=== PATIENT | female | born 1955 | race Caucasian/White ===

== ENCOUNTER 2020-08-19 15:15 | Outpatient (REF) | payer OTHER, SELFPAY | END 2020-08-19 15:16 | disposition home or self-care (01) | LOC: HO.LAB 15:15 | PROVIDERS: Visit Provider Internal Medicine | DX: Z20.828 Contact with and (suspected) exposure to other viral communicable diseases (principal) | CPT/HCPCS: C9803; U0003 ==

== ENCOUNTER 2020-09-30 15:00 | Outpatient (REF) | payer OTHER, SELFPAY | END 2020-09-30 15:01 | disposition home or self-care (01) | LOC: HO.LAB 15:00 | PROVIDERS: PCP Internal Medicine; Visit Provider Internal Medicine | DX: Z20.828 Contact with and (suspected) exposure to other viral communicable diseases (principal) | CPT/HCPCS: C9803; U0003 ==

== ENCOUNTER 2024-01-18 13:44 | Outpatient (AMB) | payer MEDICARE, SELFPAY ==
--- NOTE | 2024-01-18 12:46 | MHC.PC.OV ---
Vital Signs 01/18/24 13:48 Height 5 ft 5 in Weight 194 lb 4 oz BMI 32.3 BP 126/68 Blood Pressure Location Lt brachial Position Sitting Respiration 12 Pulse 78 Pulse Source Pulse Oximeter Pulse Oximetry (%) 98 Oxygen Delivery Method Room Air Intake Visit Reasons: Blood Pressure follow up Intake Note: Patient is here for a follow up of blood pressure and to establish care in the office. Patient also takes a probiotic and a joint and muscle vitamin. Patient reports she has a psych provide-Qi. 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 Accompanied by: Self / Same As Patient Allergies gluten [GLUTEN] Allergy (Unknown, Verified 01/18/24 13:52) CELIAC DISEASE Penicillins [PENICILLINS] Allergy (Unknown, Verified 01/18/24 13:52) HIVES Sulfa (Sulfonamide Antibiotics) [SULFA (SULFONAMIDE ANTIBIOTICS)] Allergy (Unknown, Verified 01/18/24 13:52) RASH Medication List - Last Reconciled 01/18/24 by Mel Samson MD amlodipine 2.5 mg PO DAILY calcium carbonate (Antacid (calcium carbonate)) 200 mg PO BID cetirizine (Zyrtec) 10 mg PO DAILY PRN cholecalciferol (vitamin D3) 50 mcg PO DAILY escitalopram oxalate 20 mg PO DAILY fluticasone propionate 50 mcg/actuation 1 spray intranasal BID glucosamine sulfate 500 mg PO DAILY krill oil mg PO lorazepam 1 mg PO BEDTIME PRN meloxicam 15 mg PO DAILY multivitamin 1 tab PO DAILY vitamin B complex 1 tab PO DAILY Tobacco use date assessed: 01/18/24 Fall risk assessment: No Falls in past year Last assessed Fall Risk: 01/18/24 Dental Screening Dental Screen Date: 01/18/24 Did you have a dental visit in the last 12 months?: Yes Did you have a dental problem in the last 6 months where you did not have access to dental care?: No Was dental information given to patient?: Patient has dentist HPI HPI Comments History of Present Illness Details 68 year old female with a past medical history of hypertension, OA, anxiety presenting for follow up CV: On amlodipine 2.5mg daily. Started preoperatively for elevated BPs MSK: Underwent left hip replacement in Nov 13 2023 at [facility] Medical History (Updated 01/18/24 @ 14:48 by Mel Samson MD) Hypertension Generalized anxiety disorder Surgical History (Updated 01/18/24 @ 14:22 by Kimmy Hutchinson CMA) History of hip replacement Social History Household Members: Spouse Housing: House Are you a primary physician locums urgent care to a significant other at home: No Do you presently have visiting nurse or other home services: No 75 years or older and lives alone: No Alcohol intake: current Alcohol intake frequency: holidays/special occasions only Patient Tobacco Use Status: Never used Tobacco e-Cigarette/Vaping Use: Never Used service: No Current occupational status: retired Current occupation: Likes to ski Cognitive needs: No Hearing needs: No Vision needs: No Questionnaire PHQ-9 Over the last 2 weeks, how often have you been bothered by any of the following problems? 1. Little interest or pleasure in doing things: not at all 2. Feeling down, depressed, or hopeless: not at all 3. Trouble falling or staying asleep, or sleeping too much: not at all 4. Feeling tired or having little energy: not at all 5. Poor appetite or overeating: not at all 6. Feeling bad about yourself - or that you are a failure or have let yourself or your family down: not at all 7. Trouble concentrating on things, such as reading the newspaper or watching television: not at all 8. Moving or speaking so slowly that other people could have noticed. Or the opposite - being so fidgety or restless that you have been moving around a lot more than usual: not at all 9. Thoughts that you would be better off or of hurting yourself in some way: not at all Total score: 0 Depression Screening Interpretation: Negative Depression Screening Done: Yes 90641 - PHQ-9 Billing: Yes Source: Developed by Drs. Davy Jones, Beatriz Pitt, Uvaldo Fairchild and colleagues, with an educational meredith from [employer]. Thrive Questionnaire Date Thrive assessed: 01/18/24 I am a: Patient What is your living situation today?: I have a steady place to live Within the past 12 months, did the food you bought not last and you didn't have the money to get more?: Never true Within the past 12 months, did you worry whether your food would run out before you got money to buy more?: Never true Do you have trouble paying for medicines?: No Do you have trouble getting transportation to medical appointments?: No Do you have trouble paying your heating and electricity bill?: No Do you have trouble taking care of your child, family member or friend?: No Do you have trouble with day-to-day activities such as bathing, preparing meals, shopping, managing finances, etc.?: No Are you currently unemployed and looking for a job?: No Are you interested in more education?: No Please select the resources that you would like help with: None Currently or been in a relationship where the following occur: no concerns reported THRIVE Score: 0 AUDIT C Alcohol Use Questionnaire (AUDIT-C) 1. How often do you have a drink containing alcohol?: Monthly or less 2. How many drinks containing alcohol do you have on a typical day when you are drinking?: 1 or 2 3. How often do you have six or more drinks on one occasion?: Never Total Score: 1 GERTRUDIS-7 AMB Questionnaire GERTRUDIS-7 Date GERTRUDIS - 7 assessed: 01/18/24 Feeling nervous, anxious, or on edge: 0 = Not at all Not being able to stop or control worryin = Not at all Worrying too much about different things: 0 = Not at all Trouble relaxin = Not at all Being so restless that it is hard to sit still: 0 = Not at all Becoming easily annoyed or irritable: 0 = Not at all Feeling afraid as if something awful might happen: 0 = Not at all Total GERTRUDIS-7 score (0-4 normal; 5-9 mild; 10-14 moderate; 15-21 severe): 0 Source: Developed by Drs. Davy Jones, Beatriz Pitt, Uvaldo Fairchlid and colleagues, with an educational meredith from [employer]. GERTRUDIS-7 Assessment Billing GERTRUDIS-7 Assessment Tool: GERTRUDIS-7 Assessment 65725 Review of Systems Const Details: ROS CONSTITUTIONAL: Denies weight loss, fever and chills. HEENT: Denies changes in vision and hearing. RESPIRATORY: Denies SOB and cough.? CV: Denies palpitations and CP GI: Denies abdominal pain, nausea, vomiting and diarrhea. : Denies dysuria and urinary frequency. MSK: Denies myalgia and joint pain. SKIN: Denies rash and pruritus. NEUROLOGICAL: Denies headache and syncope. PSYCHIATRIC: Denies recent changes in mood. Denies anxiety and depression. Physical exam (Primary Care) Vital Signs: Last Vital Signs Pulse 78 01/18/24 13:48 Resp 12 01/18/24 13:48 BP 126/68 01/18/24 13:48 Pulse Ox 98 01/18/24 13:48 Oxygen Delivery Method Room Air 01/18/24 13:48 BMI result Body Mass Index 32.3 Tobacco/Smoking Status: Tobacco use Status Tobacco use date assessed 01/18/24 01/18/24 14:06 Patient Tobacco Use Status Never used Tobacco 01/18/24 14:06 e-Cigarette/Vaping Use Never Used 01/18/24 14:06 PHQ-9: PHQ-9 Score PHQ-9: Total score 0 01/18/24 14:08 Depression Screening Interpretation: Negative Currently or been in a relationship where the following occur: no concerns reported Const Other: PHYSICAL EXAM: GENERAL: Alert and oriented x 3. No acute distress. Well-nourished. EYES: EOMI. Anicteric. HENT: Moist mucous membranes. No scleral icterus. No cervical lymphadenopathy. LUNGS: Clear to auscultation bilaterally. No accessory muscle use. CARDIOVASCULAR: Regular rate and rhythm. No murmur. No JVD. ABDOMEN: Soft, non-tender and non-distended. No palpable masses. EXTREMITIES: No edema. Non-tender.?SKIN: No rashes or lesions. Warm. NEUROLOGIC: No focal neurological deficits. CN II-XII grossly intact, but not individually tested. PSYCHIATRIC: Cooperative. Appropriate mood and affect. Assessment and Plan Assessment & Plan (1) Hypertension: Comment: controlled on current medications Code(s): I10 - Essential (primary) hypertension Qualifiers: Hypertension type: primary hypertension Qualified Code(s): I10 - Essential (primary) hypertension (2) Osteoarthritis: Comment: s/p hip replacement. switch meloxicam to celebrex as GI upset requiring PPI Code(s): M19.90 - Unspecified osteoarthritis, unspecified site Qualifiers: Osteoarthritis location: multiple joints Osteoarthritis type: primary Qualified Code(s): M15.9 - Polyosteoarthritis, unspecified (3) Generalized anxiety disorder: Comment: stable. follows with psychiatry Code(s): F41.1 - Generalized anxiety disorder Orders: Orders MM screening mammo BI Today Z12.31 - Encounter for screening mammogram for malignant neoplasm of breast Referrals Cologuard Test Z12.11 - Encounter for screening for malignant neoplasm of colon, Z12.12 - Encounter for screening for malignant neoplasm of rectum Medications: New celecoxib (Celebrex) 200 mg PO BID 90 days PRN 180 caps 3RF pain amlodipine 2.5 mg PO DAILY 90 days 90 tabs 3RF Coding Level of Care Code Est Pt Level 5 (19383) Diagnoses Primary hypertension I10 Hypertension type: primary hypertension Primary osteoarthritis involving multiple joints M15.9 Osteoarthritis location: multiple joints Osteoarthritis type: primary Generalized anxiety disorder F41.1 Additional Codes GERTRUDIS-7 Assessment Billing - GERTRUDIS-7 Assessment Tool: GERTRUDIS-7 Assessment [id number] ([id number]) Time Spent (min) 42
[2024-01-18 13:48] VITALS: BP 126/68; PULSE 78; RESP 12; O2SAT 98; BMI 32.3
== END 2024-01-18 14:32 | disposition home or self-care (01) ==
PROVIDERS: PCP Internal Medicine; Visit Provider Internal Medicine
DX: I10 Essential (primary) hypertension (principal); M15.9 Polyosteoarthritis, unspecified; F41.1 Generalized anxiety disorder
CPT/HCPCS: 96127; 99215

== ENCOUNTER 2024-07-19 14:49 | Outpatient (AMB) | payer MEDICARE, SELFPAY ==
--- NOTE | 2024-07-19 14:47 | A.OFFPC_ITS ---
Vital Signs 07/19/24 14:56 Height 5 ft 5 in Weight 195 lb 8 oz BMI 32.5 BP 124/78 Blood Pressure Location Lt brachial Position Sitting Pulse 76 Pulse Source Pulse Oximeter Pulse Oximetry (%) 99 Oxygen Delivery Method Room Air Intake Visit Reasons: 6 mth follow up bp Intake Note: Six month follow up. Rash right hand Allergies gluten [GLUTEN] Allergy (Unknown, Verified 07/19/24 14:48) CELIAC DISEASE Penicillins [PENICILLINS] Allergy (Unknown, Verified 07/19/24 14:48) HIVES Sulfa (Sulfonamide Antibiotics) [SULFA (SULFONAMIDE ANTIBIOTICS)] Allergy (Unknown, Verified 07/19/24 14:48) RASH Tobacco use date assessed: 01/18/24 Dental Screening Dental Screen Date: 01/18/24 HPI HPI Comments History of Present Illness Details 68 year old female with a past medical h istory of hypertension, osteoarthritis, anxiety presenting for follow up CV: On amlodipine 2.5mg daily. Started preoperatively for elevated BPs. Blood pressure is excellent. She may try off it a month prior to her next visit MSK: Underwent left hip replacement in Nov 13 2023 at [facility]. She completed follow up. She was experiencing some postoperative left knee pain but this seems to have completely subsided. Anxiety: On lexapro 20mg daily. Doing well. Mammo scheduled Cologuard 06/2024 ROS CONSTITUTIONAL: Denies weight loss, fever and chills. HEENT: Denies changes in vision and hearing. RESPIRATORY: Denies SOB and cough. CV: Denies palpitations and CP GI: Denies abdominal pain, nausea, vomiting and diarrhea. : Denies dysuria and urinary frequency. MSK: Denies new myalgia and joint pain. SKIN: interdigital hand eczema NEUROLOGICAL: Denies headache PSYCHIATRIC: Denies recent changes in mood. PHYSICAL EXAM: GENERAL: Alert and oriented x 3. NAD EYES: EOMI. Anicteric. HENT: Moist mucous membranes. No scleral icterus. No cervical lymphadenopathy. LUNGS: Clear to auscultation bilaterally. CARDIOVASCULAR: Regular rate and rhythm. No murmur. No JVD. ABDOMEN: Soft, non-tender +bs EXTREMITIES: No edema. Non-tender. SKIN: eczema between third and fourth right fingers NEUROLOGIC: No focal neurological deficits. CN II-XII grossly intact PSYCHIATRIC: Cooperative. Appropriate mood and affect [facility] Medical History (Updated 07/22/24 @ 06:27 by Mel Samson MD) Hypertension Generalized anxiety disorder Surgical History (Updated 01/18/24 @ 14:22 by Kimmy Hutchinson CMA) History of hip replacement Social History (Updated 01/18/24 @ 13:56 by Kimmy Hutchinson CMA) Household Members: Spouse Housing: House Are you a primary progressive care unit registered nurse to a significant other at home: No Do you presently have visiting nurse or other home services: No 75 years or older and lives alone: No Alcohol intake: current Alcohol intake frequency: holidays/special occasions only Patient Tobacco Use Status: Never used Tobacco e-Cigarette/Vaping Use: Never Used service: No Current occupational status: retired Current occupation: Likes to [employer] Cognitive needs: No Hearing needs: No Vision needs: No Questionnaire Thrive Questionnaire Date Thrive assessed: 07/16/24 GERTRUDIS-7 AMB Questionnaire GERTRUDIS-7 Date GERTRUDIS - 7 assessed: 01/18/24 Source: Developed by Drs. Davy Jones, Beatriz Pitt, Uvaldo Fairchild and colleagues, with an educational meredith from [employer]. Physical exam (Primary Care) Vital Signs: Last Vital Signs Pulse 76 07/19/24 14:56 BP 124/78 07/19/24 14:56 Pulse Ox 99 07/19/24 14:56 Oxygen Delivery Method Room Air 07/19/24 14:56 BMI result Body Mass Index 32.5 Tobacco/Smoking Status: Tobacco use Status Tobacco use date assessed 01/18/24 07/19/24 14:48 Patient Tobacco Use Status Never used Tobacco 07/19/24 14:48 e-Cigarette/Vaping Use Never Used 07/19/24 14:48 Thrive Assessment: Date of Thrive Assessment Date Thrive assessed 07/16/24 07/19/24 14:48 Coding Level of Care Code Est Pt Level 4 (46884) Diagnoses Generalized anxiety disorder F41.1 Primary hypertension I10 Hypertension type: primary hypertension Primary osteoarthritis involving multiple joints M15.9 Osteoarthritis location: multiple joints Osteoarthritis type: primary Assessment & Plan Assessment & Plan (1) Generalized anxiety disorder: Comment: stable. follows with psychiatry Code(s): F41.1 - Generalized anxiety disorder Category: Medical Plan: stable. continue current medications (2) Hypertension: Comment: controlled on current medications Code(s): I10 - Essential (primary) hypertension Category: Medical Qualifiers: Hypertension type: primary hypertension Qualified Code(s): I10 - Essential (primary) hypertension Plan: continue current medications (3) Osteoarthritis: Code(s): M19.90 - Unspecified osteoarthritis, unspecified site Category: Medical Qualifiers: Osteoarthritis location: multiple joints Osteoarthritis type: primary Qualified Code(s): M15.9 - Polyosteoarthritis, unspecified Plan: No longer having any GI upset. She has returned to [facility] Orders: Orders Complete Blood Count Auto Diff 07/19/24 F41.1 - Generalized anxiety disorder, I10 - Essential (primary) hypertension, M15.9 - Polyosteoarthritis, unspecified Vitamin D 25-OH (D2 and D3) 07/19/24 F41.1 - Generalized anxiety disorder, I10 - Essential (primary) hypertension, M15.9 - Polyosteoarthritis, unspecified Comprehensive Met. Panel 07/19/24 F41.1 - Generalized anxiety disorder, I10 - Essential (primary) hypertension, M15.9 - Polyosteoarthritis, unspecified Lipid Panel 07/19/24 F41.1 - Generalized anxiety disorder, I10 - Essential (primary) hypertension, M15.9 - Polyosteoarthritis, unspecified TSH reflex Free T4 07/19/24 F41.1 - Generalized anxiety disorder, I10 - Essential (primary) hypertension, M15.9 - Polyosteoarthritis, unspecified Medications: New clobetasol 0.05% 1 appl topical BID 60 grams 3RF 2 weeks meloxicam 15 mg PO DAILY 90 tabs 3RF
[2024-07-19 14:56] VITALS: BP 124/78; PULSE 76; O2SAT 99; BMI 32.5
== END 2024-07-19 15:34 | disposition home or self-care (01) ==
PROVIDERS: PCP Internal Medicine; Visit Provider Internal Medicine
DX: F41.1 Generalized anxiety disorder (principal); I10 Essential (primary) hypertension; M15.9 Polyosteoarthritis, unspecified

== ENCOUNTER → 2024-07-19 14:49 | Outpatient (BNVA) | payer MEDICARE, SELFPAY | PROVIDERS: PCP Internal Medicine; Visit Provider Internal Medicine | DX: F41.1 Generalized anxiety disorder (principal); I10 Essential (primary) hypertension; M15.9 Polyosteoarthritis, unspecified | CPT/HCPCS: 99212 ==

== ENCOUNTER 2024-07-30 09:58 | Outpatient (REF) | payer MEDICARE, SELFPAY ==
[2024-07-30 11:30] LABS: MANUAL DIFF FLAG NO
[2024-07-30 11:57] LABS: Basophils Absolute Auto 0.1 X10*3/uL (0.0-0.2); Eosinophils Absolute Auto 0.2 X10*3/uL (0.0-0.4); Eosinophils Percent Auto 6.1 % (0-4); Hemoglobin 13.7 g/dl (12.0-16.0); Imm Gran Abs Auto 0.02 X10*3/uL (0.00-0.03); Imm Gran Pct Auto 0.6 % (0.0-0.4); Lymphocytes Absolute Auto 1.4 X10*3/uL (1.2-4.9); Lymphocytes Percent Auto 39.9 % (20-40); Mean Corpuscular HGB Conc 34.3 g/dl (31.0-35.0); Mean Corpuscular Hemoglobin 33.6 pg (27.0-33.0); Monocytes Absolute Auto 0.4 X10*3/uL (0.1-1.2); Monocytes Percent Auto 12.5 % (2-11); Neutrophils Absolute Auto 1.3 x10*3/uL (2.0-8.3); Neutrophils Percent Auto 38.9 % (45-73); Platelet Count 287 X10*3/uL (160-400); Red Blood Count 4.08 X10*6/uL (4.20-5.50); Red Cell Distribution Width 11.7 % (11.0-16.0); White Blood Count 3.4 X10*3/uL (4.8-10.8)
[2024-07-30 12:46] LABS: Alanine Aminotransferase 14 U/L (0-31); Albumin Level 4.2 g/dL (3.5-5.0); Alkaline Phosphatase 76 U/L (39-117); Anion Gap 13 (12-20); Aspartate Amino Transferase 24 U/L (5-31); Bilirubin Total 0.4 mg/dL (0.0-1.0); Blood Urea Nitrogen 15 mg/dL (9-16); Calcium 9.5 mg/dL (8.4-10.2); Carbon Dioxide 29 mmol/L (22-29); Chloride 105 mmol/L (96-108); Cholesterol 258 mg/dL (<200); Estimated Glomerular Filt Rate > 60; Glucose Random 87 mg/dL (60-115); HDL Cholesterol 74 mg/dL (>40); LDL Cholesterol Calculated 150 mg/dL (<100); Potassium 4.3 mmol/L (3.3-5.1); Sodium 143 mmol/L (135-145); Triglycerides 170 mg/dL (<150)
[2024-07-30 13:11] LABS: TSH reflex Free T4 2.75 uIU/mL (0.32-4.0)
[2024-08-03 16:49] LABS: Vitamin D 25-OH, D2 <4 ng/mL; Vitamin D 25-OH, D3 43 ng/mL; Vitamin D 25-OH, Total 43 ng/mL (30-100)
== END 2024-07-30 09:59 | disposition home or self-care (01) ==
LOC: HO.WFDLDS 09:58
PROVIDERS: Visit Provider Internal Medicine
DX: I10 Essential (primary) hypertension (principal); F41.1 Generalized anxiety disorder; M15.9 Polyosteoarthritis, unspecified
CPT/HCPCS: 36415; 80053; 80061; 82306; 84443; 85025

== ENCOUNTER 2024-09-05 09:56 | Outpatient (REF) | payer MEDICARE, SELFPAY ==
[2024-09-05 11:25] LABS: MANUAL DIFF FLAG NO
[2024-09-05 11:41] LABS: Basophils Absolute Auto 0.1 X10*3/uL (0.0-0.2); Basophils Percent Auto 1.7 % (0-2); Eosinophils Absolute Auto 0.2 X10*3/uL (0.0-0.4); Eosinophils Percent Auto 4.9 % (0-4); Hematocrit 39.9 % (37.0-47.0); Hemoglobin 13.6 g/dl (12.0-16.0); Imm Gran Abs Auto 0.01 X10*3/uL (0.00-0.03); Imm Gran Pct Auto 0.3 % (0.0-0.4); Lymphocytes Absolute Auto 1.4 X10*3/uL (1.2-4.9); Mean Corpuscular HGB Conc 34.1 g/dl (31.0-35.0); Mean Corpuscular Hemoglobin 33.4 pg (27.0-33.0); Mean Platelet Volume 8.9 fL (9.4-12.3); Monocytes Absolute Auto 0.4 X10*3/uL (0.1-1.2); Monocytes Percent Auto 12.4 % (2-11); Neutrophils Absolute Auto 1.4 x10*3/uL (2.0-8.3); Neutrophils Percent Auto 41.7 % (45-73); Platelet Count 286 X10*3/uL (160-400); Red Blood Count 4.07 X10*6/uL (4.20-5.50); Red Cell Distribution Width 11.6 % (11.0-16.0); White Blood Count 3.5 X10*3/uL (4.8-10.8)
--- OUTSIDE RECORDS SUMMARY | 2024-09-11 01:25 | XMS_ITS | Continuity of Care Document ---
Author Organization Formerly [facility]. If a dditional information is needed, contact Health Information Management at [phone] Address [address] [place] [address] Phone Care Team Providers Care Customer Service Representative Teacher Name Role Phone Unavailable Unavailable Unavailable Unavailable Unavailable Unavailable Unavailable Unavailable Unavailable Problems Low back pain Onset:09-Jul-2022 Mone Connor MD Allergies and Adverse Reactions No Known Allergies(Allergy) Onset: 09-Jul-2022 Social History Smoking Status Never smoked tobacco Recorded: 09-Jul-2022
== END 2024-09-05 09:57 | disposition home or self-care (01) ==
LOC: HO.WFDLDS 09:56
PROVIDERS: Visit Provider Internal Medicine
DX: R79.89 Other specified abnormal findings of blood chemistry (principal)
CPT/HCPCS: 85025

== ENCOUNTER 2025-03-04 16:01 | Outpatient (AMB) | payer MEDICARE, SELFPAY ==
--- NOTE | 2025-03-04 16:04 | A.OFFPC_ITS ---
Vital Signs 03/04/25 16:08 Height 5 ft 5 in Weight 195 lb BMI 32.4 BP 130/78 Blood Pressure Location Lt brachial Position Sitting Respiration 14 Pulse 95 Pulse Source Pulse Oximeter Pulse Oximetry (%) 95 Oxygen Delivery Method Room Air Intake Visit Reasons: CPE Intake Note: Physical. Has been off blood pressure for a week. 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 Started preoperatively for elevated BPs. Denies chest pain, exertional dyspnea MSK: Underwent left hip replacement in Nov 13 2023 at [facility]. She completed follow up. She was experiencing some postoperative left knee pain but it subsided Anxiety: On lexapro 20mg daily. Doing well. Follows [facility] Mammo 01/2025 Cologuard 06/2024 Going to obstetrician gynecologist q2 years ROS CONSTITUTIONAL: Denies weight loss, fever and chills. HEENT: Denies changes in vision and hearing. RESPIRATORY: Denies SOB and cough. CV: Denies palpitations and CP GI: Denies abdominal pain, nausea, vomiting and diarrhea. : Denies dysuria and urinary frequency. MSK: Denies new myalgia and joint pain. SKIN: interdigital hand eczema NEUROLOGICAL: Denies headache PSYCHIATRIC: Denies recent changes in mood. PHYSICAL EXAM: GENERAL: Alert and oriented x 3. NAD EYES: EOMI. Anicteric. HENT: Moist mucous membranes. No scleral icterus. No cervical lymphadenopathy. LUNGS: Clear to auscultation bilaterally. CARDIOVASCULAR: Regular rate and rhythm. No murmur. No JVD. ABDOMEN: Soft, non-tender +bs EXTREMITIES: No edema. Non-tender. SKIN: eczema between third and fourth right fingers NEUROLOGIC: No focal neurological deficits. CN II-XII grossly intact PSYCHIATRIC: Cooperative. Appropriate mood and affect [facility] Medical History (Updated 03/04/25 @ 16:20 by Mel Samson MD) Hypertension Generalized anxiety disorder Surgical History History of hip replacement Social History (Updated 03/04/25 @ 16:12 by Breonna Bradley CMA) Household Members: Spouse Housing: House Are you a primary respiratory care program director to a significant other at home: No Do you presently have visiting nurse or other home services: No 75 years or older and lives alone: No Alcohol intake: current Alcohol intake frequency: holidays/special occasions only Patient Tobacco Use Status: Never used Tobacco e-Cigarette/Vaping Use: Never Used service: No Current occupational status: retired Current occupation: Likes to ski Cognitive needs: No Hearing needs: No Vision needs: No Questionnaire PHQ-9 Over the last 2 weeks, how often have you been bothered by any of the following problems? 1. Little interest or pleasure in doing things: not at all 2. Feeling down, depressed, or hopeless: not at all 3. Trouble falling or staying asleep, or sleeping too much: not at all 4. Feeling tired or having little energy: not at all 5. Poor appetite or overeating: not at all 6. Feeling bad about yourself - or that you are a failure or have let yourself or your family down: not at all 7. Trouble concentrating on things, such as reading the newspaper or watching television: not at all 8. Moving or speaking so slowly that other people could have noticed. Or the opposite - being so fidgety or restless that you have been moving around a lot more than usual: not at all 9. Thoughts that you would be better off or of hurting yourself in some way: not at all Total score: 0 Depression Screening Interpretation: Negative Depression Screening Done: Yes 03441 - PHQ-9 Billing: Yes Source: Developed by Drs. Davy Jones, Beatriz Pitt, Uvaldo Fairchild and colleagues, with an educational meredith from [employer]. Thrive Questionnaire Date Thrive assessed: 03/04/25 I am a: Patient What is your living situation today?: I have a steady place to live Within the past 12 months, did the food you bought not last and you didn't have the money to get more?: Never true Within the past 12 months, did you worry whether your food would run out before you got money to buy more?: Never true Do you have trouble paying for medicines?: No Do you have trouble getting transportation to medical appointments?: No Do you have trouble paying your heating and electricity bill?: No Do you have trouble taking care of your child, family member or friend?: No Do you have trouble with day-to-day activities such as bathing, preparing meals, shopping, managing finances, etc.?: No Are you currently unemployed and looking for a job?: No Are you interested in more education?: No Please select the resources that you would like help with: None Currently or been in a relationship where the following occur: No concerns reported THRIVE Score: 0 AUDIT C Alcohol Use Questionnaire (AUDIT-C) 1. How often do you have a drink containing alcohol?: 2-4 times a month 2. How many drinks containing alcohol do you have on a typical day when you are drinking?: 1 or 2 3. How often do you have six or more drinks on one occasion?: Never Total Score: 2 GERTRUDIS-7 AMB Questionnaire GERTRUDIS-7 Date GERTRUDIS - 7 assessed: 03/04/25 Feeling nervous, anxious, or on edge: 0 = Not at all Not being able to stop or control worryin = Not at all Worrying too much about different things: 0 = Not at all Trouble relaxin = Not at all Being so restless that it is hard to sit still: 0 = Not at all Becoming easily annoyed or irritable: 0 = Not at all Feeling afraid as if something awful might happen: 0 = Not at all Total GERTRUDIS-7 score (0-4 normal; 5-9 mild; 10-14 moderate; 15-21 severe): 0 Source: Developed by Drs. Davy Jones, Beatriz Pitt, Uvaldo Fairchild and colleagues, with an educational meredith from [employer]. GERTRUDIS-7 Assessment Billing GERTRUDIS-7 Assessment Tool: GERTRUDIS-7 Assessment 70206 Physical exam (Primary Care) Vital Signs: Last Vital Signs Pulse 95 03/04/25 16:08 Resp 14 03/04/25 16:08 BP 130/78 03/04/25 16:08 Pulse Ox 95 03/04/25 16:08 Oxygen Delivery Method Room Air 03/04/25 16:08 BMI result Body Mass Index 32.4 Tobacco/Smoking Status: Tobacco use Status Tobacco use date assessed 01/18/24 03/04/25 16:11 Patient Tobacco Use Status Never used Tobacco 03/04/25 16:11 e-Cigarette/Vaping Use Never Used 03/04/25 16:11 PHQ-9: PHQ-9 Score PHQ-9: Total score 0 03/04/25 16:43 Depression Screening Interpretation: Negative Thrive Assessment: Date of Thrive Assessment Date Thrive assessed 03/04/25 03/04/25 16:11 Currently or been in a relationship where the following occur: No concerns reported Coding Level of Care Code Est Pt Prev Care >65y(77288) Diagnoses Physical exam Z00.00 Generalized anxiety disorder F41.1 Primary hypertension I10 Hypertension type: primary hypertension Screening for hyperlipidemia Z13.220 Additional Codes GERTRUDIS-7 Assessment Billing - GERTRUDIS-7 Assessment Tool: GERTRUDIS-7 Assessment 62938 ([id number]) PHQ-9 - 52959 - PHQ-9 Billing: Yes ([id number]) Assessment & Plan Assessment & Plan (1) Physical exam: Code(s): Z00.00 - Encounter for general adult medical examination without abnormal findings (2) Generalized anxiety disorder: Comment: stable. follows with psychiatry Code(s): F41.1 - Generalized anxiety disorder Category: Medical (3) Hypertension: Comment: controlled on current medications Code(s): I10 - Essential (primary) hypertension Category: Medical Qualifiers: Hypertension type: primary hypertension Qualified Code(s): I10 - Essential (primary) hypertension (4) Screening for hyperlipidemia: Code(s): Z13.220 - Encounter for screening for lipoid disorders Category: Medical Plan CPE Interval history reviewed Blood pressure is controlled off medications Anxiety is well controlled preventive measures for age are up to date Orders: Orders Complete Blood Count Auto Diff 6 Months F41.1 - Generalized anxiety disorder, I10 - Essential (primary) hypertension, M15.9 - Polyosteoarthritis, unspecified, Z13.0 - Encounter for screening for diseases of the blood and blood-forming organs and certain disorders involving the immune mechanism, Z13.220 - Encounter for screening for lipoid disorders Comprehensive Met. Panel 6 Months F41.1 - Generalized anxiety disorder, I10 - Essential (primary) hypertension, M15.9 - Polyosteoarthritis, unspecified, Z13.0 - Encounter for screening for diseases of the blood and blood-forming organs and certain disorders involving the immune mechanism, Z13.220 - Encounter for screening for lipoid disorders Lipid Panel 6 Months F41.1 - Generalized anxiety disorder, I10 - Essential (primary) hypertension, M15.9 - Polyosteoarthritis, unspecified, Z13.0 - Encounter for screening for diseases of the blood and blood-forming organs and certain disorders involving the immune mechanism, Z13.220 - Encounter for screening for lipoid disorders TSH reflex Free T4 6 Months F41.1 - Generalized anxiety disorder, I10 - Essential (primary) hypertension, M15.9 - Polyosteoarthritis, unspecified, Z13.0 - Encounter for screening for diseases of the blood and blood-forming organs and certain disorders involving the immune mechanism, Z13.220 - Encounter for screening for lipoid disorders Vitamin D 25-OH (D2 and D3) 6 Months F41.1 - Generalized anxiety disorder, I10 - Essential (primary) hypertension, M15.9 - Polyosteoarthritis, unspecified, Z13.0 - Encounter for screening for diseases of the blood and blood-forming organs and certain disorders involving the immune mechanism, Z13.220 - Encounter for screening for lipoid disorders
[2025-03-04 16:08] VITALS: BP 130/78; PULSE 95; RESP 14; O2SAT 95; BMI 32.4
--- OUTSIDE RECORDS SUMMARY | 2025-03-04 17:06 | XMS_ITS | Encounter Summary ---
Author Organization [facility] Address [address] [place] [address] Care Team Providers Care Power Bender Operator Name Role Phone Mel Ibrahim MD Primary Care Provider Macario Soria MD Primary Care Provider Unavailab Shi, Pcp Primary Care Provider Unavailcleo allen Encounter Details Date Type Department Care Team Description 11/06/2018 Orders Only Medicine/Pediatrics - [address] [id number] Luis Miguel Lux MD NSAID long-term use (Primary Dx) Social History Tobacco Use Types Packs/Day Years Used Date Smoking Tobacco: Never Smokeless Tobacco: Never Alcohol Use Standard Drinks/Week Comments Yes 0.8 (1 standard drink = 0.6 oz p ure alcohol) special occasions Sex Assigned at Date Recorded Not on file documented as of this encounter Plan of Treatment Scheduled Orders Name Type Priority Associated Diagnoses Orde r Schedule BASIC METABOLIC PANEL Lab Routine NSAID long-term use Expected: 11/06/2018, Expires: 11/06/2019 documented as of this encounter Visit Diagnoses Diagnosis NSAID long-term use- Primary Encounter for long-term (current) use of non-steroidal anti-inflammatories documented in this encounter Care Teams Power Bender Operator Relationship Specialty Start Date End Date Mel Ibrahim MD PCP - General Internal Medicine 11/05/15 03/07/21 Macario Knowles MD PCP - General Internal Medicine 03/08/21 02/13/22 [facility], Pcp PCP - General Internal Medicine 02/14/22 documented as of this encounter
== END 2025-03-04 16:35 | disposition home or self-care (01) ==
LOC: HO.HMCFM 16:02
PROVIDERS: PCP Internal Medicine; Visit Provider Internal Medicine
DX: I10 Essential (primary) hypertension (principal); F41.1 Generalized anxiety disorder; Z13.220 Encounter for screening for lipoid disorders

== ENCOUNTER → 2025-03-04 16:01 | Outpatient (BNVA) | payer MEDICARE, SELFPAY | PROVIDERS: PCP Internal Medicine; Visit Provider Internal Medicine | DX: Z00.00 Encounter for general adult medical examination without abnormal findings (principal); I10 Essential (primary) hypertension; F41.1 Generalized anxiety disorder; F41.9 Anxiety disorder, unspecified; Z13.220 Encounter for screening for lipoid disorders | CPT/HCPCS: 96127; 99212 ==

== ENCOUNTER 2025-08-19 09:09 | Outpatient (REF) | payer MEDICARE, SELFPAY ==
[2025-08-19 12:00] LABS: MANUAL DIFF FLAG NO
[2025-08-19 12:13] LABS: Hematocrit 39.2 % (37.0-47.0); Hemoglobin 13.1 g/dl (12.0-16.0); Imm Gran Abs Auto 0.02 X10*3/uL (0.00-0.03); Imm Gran Pct Auto 0.4 % (0.0-0.4); Lymphocytes Absolute Auto 1.8 X10*3/uL (1.2-4.9); Mean Corpuscular HGB Conc 33.4 g/dl (31.0-35.0); Mean Corpuscular Hemoglobin 32.9 pg (27.0-33.0); Mean Corpuscular Volume 98.5 fL (80.0-98.0); NRBC Abs Auto 0.000 X10*3/uL (0.0-0.012); NRBC Pct Auto 0.0 /100WBC (0.0-0.2); Platelet Count 294 X10*3/uL (160-400); Red Blood Count 3.98 X10*6/uL (4.20-5.50); White Blood Count 5.4 X10*3/uL (4.8-10.8)
[2025-08-19 12:22] LABS: Alanine Aminotransferase 12 U/L (0-31); Albumin Level 4.3 g/dL (3.5-5.0); Alkaline Phosphatase 75 U/L (39-117); Anion Gap 10 (12-20); Aspartate Amino Transferase 21 U/L (5-31); Blood Urea Nitrogen 20 mg/dL (9-16); Calcium 9.3 mg/dL (8.4-10.2); Carbon Dioxide 30 mmol/L (22-29); Chloride 104 mmol/L (96-108); Cholesterol 228 mg/dL (<200); Estimated Glomerular Filt Rate > 60; HDL Cholesterol 79 mg/dL (>40); Potassium 4.4 mmol/L (3.3-5.1); Sodium 140 mmol/L (135-145); Total Protein 6.7 g/dL (6.5-8.0); Triglycerides 113 mg/dL (<150)
[2025-08-24 12:58] LABS: Vitamin D 25-OH, D2 <4 ng/mL; Vitamin D 25-OH, D3 42 ng/mL; Vitamin D 25-OH, Total 42 ng/mL (30-100)
== END 2025-08-19 09:10 | disposition home or self-care (01) ==
LOC: HO.WFDLDS 09:09
PROVIDERS: Visit Provider Internal Medicine
DX: Z13.220 Encounter for screening for lipoid disorders (principal); Z13.0 Encounter for screening for diseases of the blood and blood-forming organs and certain disorders involving the immune mechanism; Z13.29 Encounter for screening for other suspected endocrine disorder; Z13.21 Encounter for screening for nutritional disorder; I10 Essential (primary) hypertension; F41.1 Generalized anxiety disorder; M15.9 Polyosteoarthritis, unspecified
CPT/HCPCS: 36415; 80053; 80061; 82306; 84443; 85025